=== PATIENT | male | born 2000 | race Caucasian/White ===

== ENCOUNTER 2024-04-02 14:45 | Outpatient (CLI) | payer OTHER ==
--- NOTE | 2024-04-03 15:57 | XRAY Report ---
PROCEDURE: Foot 1-2V LT INDICATIONS: PAIN IN LEFT FOOT TECHNIQUE: 3 views of the foot were obtained. COMPARISON: None FINDINGS: Bones: No fractures or dislocations. No suspicious bony lesions. Soft tissues: Unremarkable. No radiopaque foreign body. IMPRESSION: Normal foot radiographs Reviewed by: Faheem Diego MD on 04/03/2024 2:55 PM AKDT Approved by: Faheem Diego MD on 04/03/2024 2:55 PM AKDT Station ID: [id number]
== END 2024-04-02 15:00 | disposition home or self-care (01) ==
LOC: DI.N 14:45
PROVIDERS: ATTEND Physician Assistant Medical
DX: M79.672 Pain in left foot (principal)